=== PATIENT | female | born 2000 | race Caucasian/White ===

== ENCOUNTER 2021-09-28 08:16 | Outpatient (CLI) | payer BC, SELFPAY ==
--- NOTE | 2021-09-28 08:22 | US_ITS ---
STUDY: ULTRASOUND OF THE FEMALE PELVIS - COMPLETE REASON FOR EXAM: Female, 21 years old. Elevated testosterone level LMP: 09/12/2021. TECHNIQUE: Transabdominal and Transvaginal TECHNICAL QUALITY: Adequate. COMPARISON: None. FINDINGS: The uterus is anteverted and is in a midline position. The uterus measures 7 cm x 5.1 cm x 4 cm. Normal uterine cervix. The endometrium measures 9 mm in thickness, and is heterogeneous (striated). There is no demonstrated endometrial mass. There is no demonstrated myometrial mass. I.U.D. - The patient does not have an I.U.D. The right ovary is visualized. The right ovary measures 3 cm x 2.6 cm x 2.1 cm. Several small follicles are seen within the ovary. There is no visualized right adnexal mass or complex lesion. There is normal arterial and normal venous vascularity. The left ovary is visualized. The left ovary measures 2.8 cm x 3.8 cm x 2.4 cm. There is a 1.9 cm x 2.4 cm x 1.5 cm left ovarian cyst. There is no visualized left adnexal mass or complex lesion. There is normal arterial and normal venous vascularity. There is no fluid in the cul-de-sac. The pre void volume of the bladder was 366 ml. US/Pelvic (Non ) IMPRESSION: 1.9 cm x 2.4 cm x 1.5 cm left ovarian cyst. Several small follicles are seen in the right ovary. Electronically Signed: Axel Acuña MD at 12:22 EST ,
--- NOTE | 2021-09-28 08:22 | US_ITS ---
STUDY: ULTRASOUND OF THE FEMALE PELVIS - COMPLETE REASON FOR EXAM: Female, 21 years old. Elevated testosterone level LMP: 09/12/2021. TECHNIQUE: Transabdominal and Transvaginal TECHNICAL QUALITY: Adequate. COMPARISON: None. FINDINGS: The uterus is anteverted and is in a midline position. The uterus measures 7 cm x 5.1 cm x 4 cm. Normal uterine cervix. The endometrium measures 9 mm in thickness, and is heterogeneous (striated). There is no demonstrated endometrial mass. There is no demonstrated myometrial mass. I.U.D. - The patient does not have an I.U.D. The right ovary is visualized. The right ovary measures 3 cm x 2.6 cm x 2.1 cm. Several small follicles are seen within the ovary. There is no visualized right adnexal mass or complex lesion. There is normal arterial and normal venous vascularity. The left ovary is visualized. The left ovary measures 2.8 cm x 3.8 cm x 2.4 cm. There is a 1.9 cm x 2.4 cm x 1.5 cm left ovarian cyst. There is no visualized left adnexal mass or complex lesion. There is normal arterial and normal venous vascularity. There is no fluid in the cul-de-sac. The pre void volume of the bladder was 366 ml. US/Transvaginal Non- IMPRESSION: 1.9 cm x 2.4 cm x 1.5 cm left ovarian cyst. Several small follicles are seen in the right ovary. Electronically Signed: Axel Acuña MD at 12:22 EST ,
[2021-09-28 10:06] LABS: Estradiol 249.5 pg/mL; Follicle Stimulating Hormone 7.6 mIU/mL; Glucose 85 mg/dL (74-106); Thyroid Stim Hormone (TSH) 1.95 uIU/mL (0.358-3.74)
[2021-09-30 15:59] LABS: Testosterone Free 1.4 pg/mL (0.0-4.2)
[2021-10-03 13:16] LABS: 17-Hydroxyprogesterone 203 ng/dL (.)
== END 2021-09-28 23:59 | disposition home or self-care (01) ==
PROVIDERS: PCP Nurse Practitioner Primary Care; Referring Provider Obstetrics & Gynecology; Visit Provider Obstetrics & Gynecology
DX: R79.89 Other specified abnormal findings of blood chemistry (principal); R35.0 Frequency of micturition
CPT/HCPCS: 36415; 76830; 76856; 82627; 82670; 82947; 83001; 83498; 84402; 84443; 87086; 87088; 82626

== ENCOUNTER → 2024-04-08 | Outpatient (CLI) | payer BC, SELFPAY ==
[2024-04-11 04:07] LABS: Chlamydia By Nucleic Acid AMP Negative (Negative); Gonococcus By Nucleic Acid AMP Negative (Negative)
[2024-04-16 14:52] LABS: HPV Reflexed? NOT INDICATED
== END | disposition home or self-care (01) ==
LOC: US 04-09 07:36 → OPUS 04-09 11:22
PROVIDERS: PCP Nurse Practitioner Primary Care; Referring Provider Nurse Practitioner Women's Health; Visit Provider Nurse Practitioner Women's Health
DX: Z12.4 Encounter for screening for malignant neoplasm of cervix (principal); N76.0 Acute vaginitis
CPT/HCPCS: 87070; 87205; 87491; 87591; 88175; G0145

== ENCOUNTER → 2024-04-10 | Outpatient (CLI) | payer BC, SELFPAY ==
--- NOTE | 2024-04-10 | US_ITS ---
STUDY: ULTRASOUND OF THE FEMALE PELVIS - COMPLETE REASON FOR EXAM: Female, 23 years old. pelvic pain, follow up on ovarian cyst LMP: March 22, 2024. TECHNIQUE: Transvaginal TECHNICAL QUALITY: Adequate. COMPARISON: Comparison is made with prior examination dated September 28, 2021. FINDINGS: The uterus is anteverted and is in a midline position. The uterus measures 8.1 cm x 4.7 cm x 3.6 cm. Normal uterine cervix. The endometrium measures 6.4 mm in thickness, and is hyperechoic. There is no demonstrated endometrial mass. There is no demonstrated myometrial mass. I.U.D. - The patient does not have an I.U.D. The right ovary is visualized. The right ovary measures 3.5 cm x 2.8 cm x 2.3 cm. Small follicles are seen within the ovary. There is no visualized right adnexal mass or complex lesion. There is normal arterial and normal venous vascularity. The left ovary is visualized. The left ovary measures 3.5 cm x 2.3 cm x 2.1 cm. Multiple small follicles are seen in the left ovary. There is no visualized left adnexal mass or complex lesion. There is normal arterial and normal venous vascularity. There is no fluid in the cul-de-sac. US/Transvaginal Non- IMPRESSION: Small follicles are seen in both ovaries. Electronically Signed: Axel Acuña MD at 9:57 EDT ,
== END | disposition home or self-care (01) ==
PROVIDERS: PCP Nurse Practitioner Primary Care; Referring Provider Nurse Practitioner Women's Health; Visit Provider Nurse Practitioner Women's Health
DX: N83.01 Follicular cyst of right ovary (principal); N83.02 Follicular cyst of left ovary
CPT/HCPCS: 76830

== ENCOUNTER 2024-12-11 10:34 | Day surgery (SDC) | payer BC, SELFPAY ==
[2024-12-11] VITALS (8 sets, daily range): BP systolic 94–104; BP diastolic 63–78; PULSE 74–89; RESP 16; TEMP 36.1–37.1; O2SAT 99–100; BMI 22.1
[2024-12-11 11:08] LABS: Internal QC Validated? YES +Cl - CLEAR BKGD; Pregnancy, Urine Negative Negative
[2024-12-11] MEDS: Lactated Ringers 1,000 ML 15 ML IV (11:15)
--- NOTE | 2024-12-11 12:04 | PCM.HP.STD ---
HPI - General General Date of Admission: 12/11/24 Date of Service: 12/11/24 Chief Complaint: Abdominal pain and constipation HPI Narrative NAGA CHAUDHRY, is a 24 F who presents for endoscopic evaluation of constipation and abdominal pain. - c/o constipation - taking Linzess 145mcg daily x2 weeks - does not feel this has shown any improvement - mucus in stools - she is having a BM every 3 days - like rabbit poop - c/o rectal pain - worse with sitting and improves with walking, no change in rectal pain with a BM - one episode of bleeding 1 month ago - on tissue - denies any weight loss - reports she was experiencing LUQ pressure - stomach pain resolved with pantoprazole and carafate - GERD is bad with eating and bending over - no issues with laying down B: coffee L: rice with tuna or protein and veggies D: quick meals - protein, starch, vegetable water intake 8 bottles a day - reports in the past month she increased vegetable in take and took fiber tablets without improvement - denies any family h/o colon CA - mom with colon polyps - denies any family h/o IBD - failed Metamucil, Miralax - walks 3 miles a day Review of GI progress note April 2020 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 01/18/2023 Karla Carcamo APRN progress note 10/28/2024 [facility] Medical History Alcohol use High cholesterol History of ulceration Gastric reflux Non-smoker Palpitations Urinary urgency Tourettes syndrome PCOS (polycystic ovarian syndrome) Irritable bowel syndrome with constipation Fatigue Eating disorder Chronic neck pain Anxiety Home Medications ?Medication ?Instructions ?Recorded ?Last Taken ?Type topiramate 25 mg sprinkle capsule 25 mg PO BID 11/10/24 11/11/24 History linaclotide 290 mcg capsule 290 mcg PO QAM #90 caps 11/11/24 12/06/24 Rx (Linzess) ondansetron HCl 4 mg tablet 4 mg PO Q8H #8 tabs 11/11/24 12/10/24 Rx sodium sul 1.479 gram-potas ch See Rx Instructions PO PER PKG DIR 11/11/24 12/11/24 06:00 Rx 0.188 gram-magnes sul 0.225 gram #24 tabs tablet (Sutab) Allergy/AdvReac Type Severity Reaction Status Date / Time No Known Allergies Allergy Verified 12/11/24 10:56 Family History Grandfather Diabetes Hypertension Hyperlipidemia Grandmother Diabetes Hypertension Hyperlipidemia Surgical History History of wisdom tooth extraction Social History household members: none current occupational status: student 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) Smoking Status: Never smoker alcohol intake: current details: social substance use type: marijuana caffeine: Yes what type of physical activity do you participate in: running and weight training frequency: 5-6 times per week seatbelt use: always do you feel safe at home: Yes additional social history: Shawna HARTLEY Constitutional Constitutional: Denies fatigue, fever(s), poor appetite, weight gain or weight loss Gastrointestinal Gastrointestinal: Denies belching, bloating, change in bowel habits, change in stool character, chewing difficulty, coffee ground emesis, constipation, cramping, diarrhea, dyspepsia, dysphagia, early satiety, excessive flatus, fecal incontinence, heartburn, hematemesis, hematochezia, hemorrhoids, loose stools, melena, nausea, odynophagia, rectal bleeding, tenesmus, vomiting or weight changes Vital Signs Vital Signs Vital Signs: 12/11/24 10:58 12/11/24 11:00 Temperature 98.7 F Temperature Source Temporal Pulse Rate 74 Respiratory Rate 16 Respiratory Pattern Normal Blood Pressure 104/78 Blood Pressure Mean 86 Blood Pressure Source Monitor Blood Pressure Position Semi-Fowlers Blood Pressure Location Left Arm Pulse Ox 100 Oxygen Delivery Method Room Air Weight Weight: 137 lb Body Mass Index (BMI) 22.1 Physical Exam Const alert, oriented x3, no apparent distress and healthy appearing General Appearance: cooperative GI normal to inspection, nondistended, normoactive bowel sounds, soft to palpation, non-tender and non-distended Percussion: normal to percussion Rectal Exam: deferred Results Lab / Micro Data Labs: Laboratory Results - last 24 hr 12/11/24 10:45: Urine Test Negative Assessment & Plan Assessment/Plan (1) Rectal bleeding: (2) GERD (gastroesophageal reflux disease): (3) Constipation: PLAN: Assessment and Plan Assessment and Plan (1) Constipation: Status: Acute (2) Rectal bleeding: Status: Acute Medications: New sod sulf-pot chloride-mag sulf 1.479-0.188- 0.225 gram (Sutab) as directed for split dose bowel prep 24 tabs 0RF ondansetron HCl take two tablets PO two hours prior to start of bowel prep and one every 4 hours as needed for N/V 4 mg PO Q8H 8 tabs 0RF linaclotide (Linzess) 290 mcg PO QAM 90 caps 1RF Discontinued linaclotide Discontinued Reason: Order Changed 145 mcg PO QAM Plan 24-year-old female presents for consultation with complaints of chronic constipation. She had previously noted symptomatic improvement with Linzess daily (initially 145 that increased to 290). She reports she was able to discontinue Linzess for period of time, although is uncertain what may have contributed to symptomatic improvement. She reports having small hard stools approximately every 3 days and complains of rectal pain/pressure. She does endorse 1 episode of BRBPR 1 month ago. I have increased Linzess to 290 mcg once daily and scheduled her for colonoscopy. She will follow-up in the office post procedure. Patient Instructions: Increase Linzess to 290mcg once daily Increase fiber intake FiberCon 2 tablets once daily with 8 ounces of water after a meal. May take up to 3 weeks for symptom improvement. Colonoscopy - 1/2d Miralax and Sutab Follow-up in office post procedure Portal with symptom update in 1 week, if no improvement with increased dose of Linzess will switch to Amitiza BID
--- NOTE | 2024-12-11 12:25 | PRE.ANES_ITS ---
ASA Classification* ASA Classification ASA Classification: 2 Assessment & Plan Anesthesia* Anesthesia Assessment Anesthesia Assessment: Discussed sedation and/or anesthesia options, risks, benefits, and alternatives with patient/parents/legal guardian/POA. Questions invited. The patient/parents/legal guardian/POA seems to understand and agrees to proceed with anesthesia plan. Reviewed the physical assessment, medical history, allergy history and patient home medications list prior to surgery/procedure/anesthetic and documented any changes. Performed airway and anesthesia risk assessments. Anesthesia Type Anesthesia Type: MAC History Source History Obtained from:: Patient and Chart Anesthesia Focused Assessment* Temperature: 98.7 F Pulse Rate: 74 Blood Pressure: 104/78 Respiratory Rate: 16 Pulse Ox: 100 Oxygen Delivery Method: Room Air Airway Assessment Mouth opens: >3 cm Mallampati Score: II Teeth Condition: Intact Neck Range of motion (ROM): Full ROM Focused Labs Anesthesia Preop lab: CBC CHEMISTRY Glucose 85 mg/dL (74-106) 09/28/21 09:05 09/28/21 TSH 1.95 uIU/mL (0.358-3.74) 09/28/21 09:05 COAG Urine Test Negative Negative 12/11/24 10:45 12/11/24 Pre-Assessment Diagnosis/Proposed Procedure Planned Operative Procedure(s): COLONSCOPY Anesthesia History 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 When Was Last Pacemaker Check QUESTION #4 FULL TEXT: You/Your Family Experience fever (hyperthermia) with Anesthesia Last Oral Intake Last Oral intake: Last Oral Intake NPO since 07:00 12/11/24 11:00 Meds taken in AM with sips of No 12/11/24 11:00 water? Meds patient instructed to take am of surgery Any additional information?: Yes NPO since: 07:00 (Patient had water with meds at 7 AM.) Meds taken in AM with sips of water?: Yes PONV PONV - watch train inspector: PONV - watch train inspector Female Yes 12/08/24 14:43 HX of Motion Sickness No 12/08/24 14:43 HX of N/V After Surgery Yes 12/08/24 14:43 Non-Smoker Yes 12/08/24 14:43 Duration of Surgery greater No 12/08/24 14:43 than 60 minutes Number of Risk Factors 3 12/08/24 14:43 PONV Score Moderate Risk 12/08/24 14:43 Height & Weight Height & Weight: Anesthesia: Height & Weight Height 5 ft 6 in 12/11/24 11:00 Weight: 62.142 kg 12/11/24 11:00 Body Mass Index (BMI) 22.1 12/11/24 11:00 Respiratory Assessment Respiratory Assessment - watch train inspector: Respiratory Tract Infection Hx - watch train inspector Hx Respiratory Tract Infection No 12/08/24 14:43 STOP Sleep Apnea STOP Sleep Apnea - watch train inspector: STOP Sleep Apnea - watch train inspector Hx Hypertension No 12/08/24 14:43 Hx Sleep Apnea No 12/08/24 14:43 CPAP BIPAP Do you snore loudly (louder No 12/08/24 14:43 than talking or can be heard Do you often feel tired/ No 12/08/24 14:43 fatigued/ sleepy during daytime? Has anyone observed you stop No 12/08/24 14:43 breathing during sleep? STOP Results Negative 12/08/24 14:43 QUESTION #5 FULL TEXT : Do you snore loudly (louder than talking or can be heard through closed doors)? 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 Specify any problems Hx of Preganancy in last 3 No 12/08/24 14:43 Months Nurse Filling Out Transfusion [facility] 12/08/24 14:43 & Questions: Date: 12/08/24 12/08/24 14:43 Time: 14:51 12/08/24 14:43 Patient unable to answer at this time (ie. confused, unrespo /Reproduction History /Reproductive History - watch train inspector: /Reproductive Hx- watch train inspector Hx Now No 12/08/24 14:43 Gestational Age (in weeks): EDC: Hx Hx Para Hx Section SAB No 12/08/24 14:43 Active Medications Active Medications: Current Medications Generic Name Dose Route Start Last Admin Trade Name Freq PRN Reason Stop Dose Admin Lactated Ringer's 1,000 mls @ 15 mls/hr 12/11/24 10:45 12/11/24 11:15 IV 15 mls/hr .Q48H VICENTE Administration PFSH Medical History Alcohol use High cholesterol History of ulceration Gastric reflux Non-smoker Palpitations Urinary urgency Tourettes syndrome PCOS (polycystic ovarian syndrome) Irritable bowel syndrome with constipation Fatigue Eating disorder Chronic neck pain Anxiety Home Medications ?Medication ?Instructions ?Recorded ?Last Taken ?Type topiramate 25 mg sprinkle capsule 25 mg PO BID 11/10/ 5 11/11/24 History linaclotide 290 mcg capsule 290 mcg PO QAM #90 caps 12/06/24 Rx (Linzess) ondansetron HCl 4 mg tablet 4 mg PO Q8H #8 tabs 12/10/24 Rx sodium sul 1.479 gram-potas ch See Rx Instructions PO PER PKG DIR 11/11/24 12/11/24 06:00 Rx 0.188 gram-magnes sul 0.225 gram #24 tabs tablet (Sutab) Allergy/AdvReac Type Severity Reaction Status Date / Time No Known Allergies Allergy Verified 12/11/24 10:56 Family History Grandfather Diabetes Hypertension Hyperlipidemia Grandmother Diabetes Hypertension Hyperlipidemia Surgical History History of wisdom tooth extraction Social History household members: none current occupational status: student 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
--- NOTE | 2024-12-11 13:30 | OP.CCLET_ITS ---
12/11/2024 Eve Liang, [facility] Re : Colonoscopy procedure for Millicent Pappas Dear Garth This procedure was performed on December. My impressions and recommendations are as follows: Impressions : - Redundant colon. - The examination was otherwise normal on direct and retroflexion views. - No specimens collected. Recommendations : - Discharge patient to home. - Resume previous diet. - Continue present medications. - No repeat colonoscopy due to no evidence of mucosal or other abnormalities on today's exam. My findings are described in the full procedure note, which is enclosed. If I can be of further assistance, please feel free to contact me at . Sincerely, Darrel Valverde, 12/11/2024 1:29:51 PM This report has been signed electronically.
--- NOTE | 2024-12-11 13:30 | OP.COLON_ITS ---
Patient Name: Millicent Pappas Procedure Date: 12/11/2024 12:43 PM Date of : 2000 Age: 24 Procedure: Colonoscopy Indications: Generalized abdominal pain, Change in bowel habits, Change in stool caliber, Constipation, Chronic idiopathic constipation Providers: Darrel Valverde DO Referring MD: Dominguez eB Medicines: Monitored Anesthesia Care Patient Profile: This is a 24 year old female. Refer to note in patient chart for documentation of history and physical. Last Colonoscopy: none. The patient's first colonoscopy is today. Complications: No immediate complications. Procedure: Pre-Anesthesia Assessment: - Prior to the procedure, a History and Physical was performed, and patient medications and allergies were reviewed. The patient is competent. The risks and benefits of the procedure and the sedation options and risks were discussed with the patient. All questions were answered and informed consent was obtained. Patient identification and proposed procedure were verified by the physician in the pre-procedure area. Mental Status Examination: alert and oriented. Airway Examination: normal oropharyngeal airway and neck mobility. Respiratory Examination: clear to auscultation. CV Examination: normal. Prophylactic Antibiotics: The patient does not require prophylactic antibiotics. Prior Anticoagulants: The patient has taken no anticoagulant or antiplatelet agents except for NSAID medication. ASA Grade Assessment: II - A patient with mild systemic disease. After reviewing the risks and benefits, the patient was deemed in satisfactory condition to undergo the procedure. The anesthesia plan was to use minimal sedation / analgesia (anxiolysis). Immediately prior to administration of medications, the patient was re-assessed for adequacy to receive sedatives. The heart rate, respiratory rate, oxygen saturations, blood pressure, adequacy of pulmonary ventilation, and response to care were monitored throughout the procedure. The physical status of the patient was re-assessed after the procedure. After I obtained informed consent, the scope was passed under direct vision. Throughout the procedure, the patient's blood pressure, pulse, and oxygen saturations were monitored continuously. The Colonoscope was introduced through the anus and advanced to the terminal ileum. The colonoscopy was performed without difficulty. The patient tolerated the procedure well. The quality of the bowel preparation was good. The terminal ileum, ileocecal valve, appendiceal orifice, and rectum were photographed. Scope In: 1:08:02 PM Scope Out: 1:19:34 PM Total Procedure Duration Time 0 hours 11 minutes 32 seconds Findings: The perianal and digital rectal examinations were normal. The colon (entire examined portion) was significantly redundant. The exam was otherwise without abnormality on direct and retroflexion views. Impression: - Redundant colon. - The examination was otherwise normal on direct and retroflexion views. - No specimens collected. Recommendation: - Discharge patient to home. - Resume previous diet. - Continue present medications. - No repeat colonoscopy due to no evidence of mucosal or other abnormalities on today's exam. Procedure Code(s): --- Professional --- 89209, Colonoscopy, flexible; diagnostic, including collection of specimen(s) by brushing or washing, when performed (separate procedure) CPT copyright 2021 [employer]. All rights reserved. The codes documented in this report are preliminary and upon countersinker balance screw hole review may be revised to meet current compliance requirements. Darrel Valverde DO 12/11/2024 1:29:51 PM This report has been signed electronically. Number of Addenda: 0 Note Initiated On: 12/11/2024 12:43 PM
--- NOTE | 2024-12-11 13:30 | PCM.POST.ANE ---
Anesthesia: Postop Eval I Current Vital Signs Temperature: 98 F Pulse Rate: 89 Blood Pressure: 96/63 Respiratory Rate: 16 Pulse Ox: 100 Oxygen Delivery Method: Room Air Assessment Airway patent: Yes Spontaneous unlabored respirations: Yes Mental status: Awake and Calm nausea: No Vomiting: No Anesthesia Complication: No Fluid Hydration Crystalloid volume administer (ml): 900 Total IV fluid infused: 900 Progress Note Anesthesia document: Postop Eval 1 completed: Yes
--- NOTE | 2024-12-11 15:02 | PCM.POSTANE2 ---
Anesthesia Postop Eval I Sum Postop Eval Completion status Anesthesia document: Postop Eval 1 completed: Yes Anesthesia Postop Eval I Summary Anesthesia Postop Eval I Summary: Anesthesia Postop Eval I: Assessment Summary Airway patent Yes 12/11/24 13:31 [email or web address] Spontaneous unlabored Yes 12/11/24 13:31 [email or web address] respirations Mental status Awake,Calm 12/11/24 13:31 [email or web address] nausea No 12/11/24 13:31 [email or web address] Vomiting No 12/11/24 13:31 [email or web address] Anesthesia Postop Eval I: Fluid Summary Crystalloid volume administer 900 12/11/24 13:31 [email or web address] (ml) Colloids volume administered ( ml) Blood Product volume administered (ml) Total IV fluid infused 900 12/11/24 13:31 [email or web address] Anesthesia Postop Eval I: Summary Notes Anesthesia Complication No 12/11/24 13:31 [email or web address] Anesthesia Complication Comment: Post-operative progress note Anesthesia: Postop Eval II Evaluation Mental status: Awake and Calm Pain Level: 0 nausea: No Vomiting: No Complications Anesthesia Complication: No
== END 2024-12-11 13:56 | disposition home or self-care (01) ==
LOC: EN 10:36 → AC 10:38
PROVIDERS: Anesthesiology; PCP Clinical Nurse Specialist Adult Health; Referring Provider Clinical Nurse Specialist Adult Health; Visit Provider Internal Medicine Gastroenterology
PROC: 0DJD8ZZ Inspection of Lower Intestinal Tract, Via Natural or Artificial Opening Endoscopic (ICD-10-PCS; CPT 45378; principal; 2024-12-11 11:55)
DX: Q43.8 Other specified congenital malformations of intestine (principal); K21.9 Gastro-esophageal reflux disease without esophagitis; E78.00 Pure hypercholesterolemia, unspecified; Z79.899 Other long term (current) drug therapy
CPT/HCPCS: 45378; 81025; J2405

== ENCOUNTER → 2025-04-10 | Outpatient (CLI) | payer OTHER, SELFPAY ==
[2025-04-10 14:28] LABS: Benzodiazepine Urine NEGATIVE (< 200 ng/mL); PCP Urine NEGATIVE (< 25 ng/mL); THC Urine NEGATIVE (< 50 ng/mL)
[2025-04-10 14:40] LABS: Barbiturate Urine NEGATIVE (< 200 ng/mL)
[2025-04-14 20:08] LABS: Chlamydia By Nucleic Acid AMP Negative (Negative); Gonococcus By Nucleic Acid AMP Negative (Negative)
== END | disposition home or self-care (01) ==
LOC: LABSPEC 11:18
PROVIDERS: PCP Clinical Nurse Specialist Adult Health; Referring Provider Advanced Practice Midwife; Visit Provider Advanced Practice Midwife
DX: O09.90 Supervision of high risk pregnancy, unspecified, unspecified trimester (principal); Z3A.00 Weeks of gestation of pregnancy not specified
CPT/HCPCS: 80307; 87086; 87491; 87591

== ENCOUNTER → 2025-05-04 | Outpatient (CLI) | payer OTHER, SELFPAY ==
[2025-05-04 10:10] LABS: Hematocrit 38.5 % (37-47); Hemoglobin 12.9 g/dL (12.0-15.0); Immature Granulocytes Count 0.020 X10^3/uL (0.0-0.0); Mean Corp Hgb Conc 33.5 g/dL (32-36); Mean Corpuscular Volume 92.5 fL (81-99); Mean Platelet Vol. 10.8 fl (6.2-12.0); NRBC Flagged by Analyzer 0 % (0-5); Platelet Count 244 K/mm3 (150-450); RBC Distribution Width CV 12.2 % (11.6-14.6); RBC Distribution Width SD 41.4 fl (35.1-43.9); Red Blood Count 4.16 M/mm3 (4.2-5.4); White Blood Count 7.3 K/mm3 (4.4-11.0)
[2025-05-04 11:21] LABS: HIV Nonreactive (Nonreactive); Hepatitis B Surface Antigen Nonreactive (Nonreactive); Hepatitis C Antibody Nonreactive (Nonreactive); Syphilis Antibodies Nonreactive (Nonreactive)
== END | disposition home or self-care (01) ==
LOC: LAB 08:57
PROVIDERS: PCP Clinical Nurse Specialist Adult Health; Referring Provider Advanced Practice Midwife; Visit Provider Advanced Practice Midwife
DX: O09.90 Supervision of high risk pregnancy, unspecified, unspecified trimester (principal); Z3A.00 Weeks of gestation of pregnancy not specified
CPT/HCPCS: 36415; 85025; 86703; 86762; 86780; 86803; 86850; 86900; 86901; 87340